=== PATIENT | female | born 1995 | race Two or more races ===

== ENCOUNTER 2016-06-14 10:59 | Emergency (ER) | payer MEDICAID ==
[2016-06-14 11:03] VITALS: RESP 16
[2016-06-14] MEDS ORDERED: NS 1,000 ML IV ONE (11:26)
--- NOTE | 2016-06-14 11:29 | EDPHY ---
H & P Stated Complaint: bleeding 12wks HPI/ROS: CHIEF COMPLAINT: Vaginal bleeding, HISTORY OF PRESENT ILLNESS: at approximately 12 weeks gestation notes bleeding that started on Saturday. It was spotting at . It has steadily increased. Still less than 1 pad per hour. Associated with some pelvic cramping but no severe pain. No abdominal pain. No flank pain. No nausea or vomiting. 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 She reports normal care to this point, with 1 ultrasound showing an intrauterine several weeks ago. Last menstrual period was March 18 2016 with an EDC of December 26, 2016. She has no other associated complaints or modifying factors. She feels that she is O negative and that she has received RhoGAM with her previous which she is uncertain. REVIEW OF SYSTEMS: Ten systems reviewed and are negative unless otherwise noted in the HPI EXAMINATION General Appearance: Alert, no distress Head: normocephalic, atraumatic Eyes: Pupils equal and round, no conjunctival pallor or injection ENT, Mouth: Mucous membranes moist . Uvula midline. No lesions or edema. Neck: Normal inspection, supple, non-tender Respiratory: Lungs are clear to auscultation . No wheezing, rhonchi or crackles. Cardiovascular: Regular rate and rhythm . No murmur. Gastrointestinal: Abdomen is soft and nontender . No tympany or rigidity. No CVA tenderness. Benign abdomen. : Female RN present. Os open at 1cm. No tenderness. No friability. Blood in the adnexa. No adnexal tenderness. Back: non-tender, no bony abnormalities Neurological: A&O, nonfocal, normal gait Skin: Warm and dry, no rash Extremities: Nontender, no pedal edema Psychiatric: Mood and affect normal DIFFERENTIAL DIAGNOSES: Including but not limited to threatened , missed , inevitable , demise, subchorionic hemorrhage, vaginal bleeding MDM: 11:20 a.m. with vaginal bleeding at 12 weeks gestation. She reports a normal care to this point. She has already had a pelvic exam with negative swabs recently at [facility]. She is also currently being treated for a urinary tract infection. The bleeding is [id number], less than 1 pad per hour. Did worsen recently. No fever or chills. No vaginal discharge. She thinks she is O negative and has already received RhoGAM in the past, but we will verify this. 12:40 p.m. notified by radiologist's that the ultrasound reveals intrauterine demise. The ultrasound shows a gestational of 9 weeks with no heart tones or activity. Clinically she is 12 weeks gestation. I have updated the patient regarding this. We will perform a pelvic exam and then consult OB for further care. I did not perform a pelvic swabs as she had this done last week. 1:07 p.m. Pelvic exam performed with female Anselmo (Wily). Os is slightly opened at 1cm. No heavy bleeding. No tenderness. I have discussed with the staff (Sherry) at [facility], and I discussed with Dr. Scott. Dr. Scott recommends 800mcg of cytotec per vagina x 2 every 4 hours. She also recommends pain medication and OTC ibuprofen. [facility] has scheduled her for follow up with Dr. Gonsalez at 10:00 a.m. on Saturday. 1:25 p.m. I have discussed this plan with the patient. She is agreeable to this. I discussed with her that she can wait to decide if she would like to take the Cytotec at a later time. She says that she will consider it. She will given prescription for Cytotec, pain medication, nausea medication. I gave her strict return to the emergency department cautions including bleeding greater than 1 pad per hour, fever, chills, worsening pelvic or abdominal pain. Additionally, she does have evidence of urinary tract infection, but she was started on antibiotics for this this week. She is instructed to continue these antibiotics and follow up with primary care regarding this as well on Saturday. She is comfortable with this plan and will be discharged home after she receives her RhoGAM injection. SUPERVISION: This patient was independently evaluated without the aide of supervising physician. Source: Patient Exam Limitations: No limitations - Personal History LMP (Females 10-55): Current Tetanus/Diphtheria Vaccine: Yes Current Tetanus Diphtheria and Acellular Pertussis (TDAP): Yes Tetanus Vaccine Date: <10 years - Medical/Surgical History Hx Asthma: No Hx Chronic Respiratory Disease: No Hx Diabetes: No Hx Cardiac Disease: No Hx Renal Disease: No Hx Cirrhosis: No Hx Alcoholism: No Hx HIV/AIDS: No Hx Splenectomy or Spleen Trauma: No Other PMH: asthma - Social History Smoking Status: Never smoked Constitutional: Initial Vital Signs Temperature (C) 97.3 F 06/14/16 11:02 Heart Rate 81 06/14/16 11:02 Respiratory Rate 16 06/14/16 11:02 Blood Pressure 114/57 L 06/14/16 11:02 O2 Sat (%) 97 06/14/16 11:02 O2 Delivery Mode Room Air Allergies/Adverse Reactions: No Known Allergies Allergy (Unverified 05/28/15 20:12) Home Medications: Medication Instructions Recorded Ciprofloxacin 500Mg Prepack#2 1 btl TAKEHOME EDNOW #0 btl 03/24/16 [Cipro 500Mg Prepack#2] Ciprofloxacin [Cipro] 500 mg PO BID #14 tab 03/24/16 Ondansetron Odt [Zofran Odt 4 mg 4 mg PO Q4 PRN #10 tab 03/24/16 (*)] Ciprofloxacin [Cipro] 500 mg PO BID #14 tab 06/14/16 Hydrocodone/APAP 5/325 [[place] 1 - 2 tab PO Q4H PRN #10 tab 06/14/16 5/325 (*)] Misoprostol [Cytotec] 800 mcg VG Q4 #16 tablet 06/14/16 Ondansetron Odt [Zofran Odt 4 mg 4 mg PO Q6 PRN #12 tab 06/14/16 (*)] Medical Decision Making - Data Points Laboratory Results: Laboratory Results 06/14/16 11:40 06/14/16 11:40 06/14/16 06/14/16 06/14/16 11:40 11:40 11:40 WBC 6.53 10^3/uL 10^3/uL (3.80-9.50) RBC 4.34 10^6/uL 10^6/uL (4.18-5.33) Hgb 11.9 g/dL L g/dL (12.6-16.3) Hct 36.2 % L % (38.0-47.0) MCV 83.4 fL fL (81.5-99.8) MCH 27.4 pg L pg (27.9-34.1) MCHC 32.9 g/dL g/dL (32.4-36.7) RDW 15.7 % H % (11.5-15.2) Plt Count 233 10^3/uL 10^3/uL (150-400) MPV 8.9 fL fL (8.7-11.7) Neut % (Auto) 59.3 % % (39.3-74.2) Lymph % (Auto) 30.9 % % (15.0-45.0) [place] % (Auto) 8.1 % % (4.5-13.0) Eos % (Auto) 1.2 % % (0.6-7.6) Baso % (Auto) 0.2 % L % (0.3-1.7) Nucleat RBC Rel Count 0.0 % % (0.0-0.2) Absolute Neuts (auto) 3.87 10^3/uL 10^3/uL (1.70-6.50) Absolute Lymphs (auto) 2.02 10^3/uL 10^3/uL (1.00-3.00) Absolute Monos (auto) 0.53 10^3/uL 10^3/uL (0.30-0.80) Absolute Eos (auto) 0.08 10^3/uL 10^3/uL (0.03-0.40) Absolute Basos (auto) 0.01 10^3/uL L 10^3/uL (0.02-0.10) Absolute Nucleated RBC 0.00 10^3/uL 10^3/uL (0-0.01) Immature Gran % 0.3 % % (0.0-1.1) Immature Gran # 0.02 10^3/uL 10^3/uL (0.00-0.10) PT 14.0 SEC SEC (12.0-15.0) INR 1.09 (0.83-1.16) APTT 30.4 SEC SEC (23.0-38.0) Sodium Potassium Chloride Carbon Dioxide Anion Gap BUN Creatinine Estimated GFR Glucose Calcium Total Bilirubin Conjugated Bilirubin Unconjugated Bilirubin AST ALT Alkaline Phosphatase Total Protein Albumin Lipase Beta HCG, Quant Urine Color YELLOW Urine Appearance CLEAR Urine pH 6.0 (5.0-7.5) Ur Specific [place] 1.012 (1.002-1.030) Urine Protein NEGATIVE (NEGATIVE) Urine Ketones NEGATIVE (NEGATIVE) Urine Blood 3+ H (NEGATIVE) Urine Nitrate POSITIVE H (NEGATIVE) Urine Bilirubin NEGATIVE (NEGATIVE) Urine Urobilinogen NEGATIVE EU EU (0.2-1.0) Ur Leukocyte Esterase 3+ H (NEGATIVE) Urine RBC 3-5 /hpf H /hpf (0-3) Urine WBC 25-50 /hpf H /hpf (0-3) Ur Epithelial Cells TRACE /lpf /lpf (NONE-1+) Urine Bacteria 2+ /hpf H /hpf (NONE SEEN) Urine Mucus TRACE /lpf /lpf (NONE-1+) Ur Culture Indicated? INDICATED H (NI) Urine Glucose NEGATIVE (NEGATIVE) Patient ABO/Rh Antibody Screen 06/14/16 06/14/16 11:40 11:40 WBC RBC Hgb Hct MCV MCH MCHC RDW Plt Count MPV Neut % (Auto) Lymph % (Auto) [place] % (Auto) Eos % (Auto) Baso % (Auto) Nucleat RBC Rel Count Absolute Neuts (auto) Absolute Lymphs (auto) Absolute Monos (auto) Absolute Eos (auto) Absolute Basos (auto) Absolute Nucleated RBC Immature Gran % Immature Gran # PT INR APTT Sodium 136 mEq/L mEq/L (134-144) Potassium 4.0 mEq/L mEq/L (3.5-5.2) Chloride 104 mEq/L mEq/L (97-110) Carbon Dioxide 22 mEq/l mEq/l (22-31) Anion Gap 10 mEq/L mEq/L (8-16) BUN 11 mg/dL mg/dL (7-23) Creatinine 0.6 mg/dL mg/dL (0.6-1.0) Estimated GFR > 60 Glucose 85 mg/dL mg/dL (70-100) Calcium 9.5 mg/dL mg/dL (8.5-10.4) Total Bilirubin 0.6 mg/dL mg/dL (0.1-1.4) Conjugated Bilirubin 0.4 mg/dL mg/dL (0.0-0.5) Unconjugated Bilirubin 0.2 mg/dL mg/dL (0.0-1.1) AST 23 IU/L IU/L (14-46) ALT 31 IU/L IU/L (9-52) Alkaline Phosphatase 62 IU/L IU/L (38-126) Total Protein 7.5 g/dL g/dL (6.3-8.2) Albumin 4.1 g/dL g/dL (3.5-5.0) Lipase 126.0 IU/L IU/L (23-300) Beta HCG, Quant 8009.40 mIU/mL H mIU/mL (0-4.83) Urine Color Urine Appearance Urine pH Ur Specific [place] Urine Protein Urine Ketones Urine Blood Urine Nitrate Urine Bilirubin Urine Urobilinogen Ur Leukocyte Esterase Urine RBC Urine WBC Ur Epithelial Cells Urine Bacteria Urine Mucus Ur Culture Indicated? Urine Glucose Patient ABO/Rh O NEGATIVE Antibody Screen Pending Medications Given: Discontinued Medications Sodium Chloride (Ns) 1,000 mls @ 0 mls/hr IV ONCE ONE PRN Reason: Wide Open Stop: 06/14/16 11:27 Last Admin: 06/14/16 11:38 Dose: 1,000 mls Departure - Departure Disposition: Home, Routine, Self-Care Clinical Impression: demise before 20 weeks with retention of fetus UTI (urinary tract infection) Qualifiers: Urinary tract infection type: site unspecified Hematuria presence: with hematuria Qualified Code(s): N39.0 - Urinary tract infection, site not specified Condition: Good Instructions: Miscarriage (ED) Additional Instructions: Follow-up with Dr. Gonsalez on Saturday at 10:00 a.m. at [facility]. Return to the ER for worsening pain, any fever, vomiting, bleeding greater than or equal to 1 pad per hour Referrals: [facility] [Other] - As per Instructions (Saturday at 10:00 a.m.) Stand Alone Forms: Work Excuse Prescriptions: Ciprofloxacin [Cipro] 500 mg PO BID #14 tab Hydrocodone/APAP 5/325 [Young 5/325 (*)] 1 - 2 tab PO Q4H PRN #10 tab PRN Reason: Pain, Moderate Misoprostol [Cytotec] 800 mcg VG Q4 #16 tablet Ondansetron Odt [Zofran Odt 4 mg (*)] 4 mg PO Q6 PRN #12 tab PRN Reason: Nausea/Vomiting, Use 1st
[2016-06-14 11:55] LABS: % IMMATURE GRANULYOCYTES 0.3 % (0.0-1.1); ABSOLUTE IMMATURE GRANULOCYTES 0.02 10^3/uL (0.00-0.10); ADD DIFF? NO; ADD MORPH? NO; ADD SCAN? NO; ATYPICAL LYMPHOCYTE FLAG 20 (0-99); FRAGMENT RBC FLAG 0 (0-99); HEMATOCRIT 36.2 % (38.0-47.0); HEMOGLOBIN 11.9 g/dL (12.6-16.3); LEFT SHIFT FLG 0 (0-99); LIPEMIA HEMOLYSIS FLAG 80 (0-99); MEAN CELL HEMOGLOBIN 27.4 pg (27.9-34.1); MEAN CELL HEMOGLOBIN CONCENTR. 32.9 g/dL (32.4-36.7); MEAN CELL VOLUME 83.4 fL (81.5-99.8); MEAN PLATELET VOLUME 8.9 fL (8.7-11.7); PLATELET CLUMPS FLAG 0 (0-99); PLATELET COUNT 233 10^3/uL (150-400); RED BLOOD CELL COUNT 4.34 10^6/uL (4.18-5.33); RED CELL DISTRIBUTION WIDTH 15.7 % (11.5-15.2)
[2016-06-14 12:06] LABS: INR 1.09 (0.83-1.16)
[2016-06-14 12:07] LABS: APTT 30.4 SEC (23.0-38.0)
[2016-06-14 12:12] LABS: ALANINE AMINOTRANSFERASE 31 IU/L (9-52); ALBUMIN 4.1 g/dL (3.5-5.0); ALKALINE PHOSPHATASE 62 IU/L (38-126); ANION GAP 10 mEq/L (8-16); ASPARTATE AMINOTRANSFERASE 23 IU/L (14-46); BILIRUBIN,TOTAL 0.6 mg/dL (0.1-1.4); BILIRUBIN-CONJUGATED 0.4 mg/dL (0.0-0.5); BILIRUBIN-UNCONJUGATED 0.2 mg/dL (0.0-1.1); CALCIUM 9.5 mg/dL (8.5-10.4); CARBON DIOXIDE 22 mEq/l (22-31); CHLORIDE 104 mEq/L (97-110); CREATININE 0.6 mg/dL (0.6-1.0); GLOMERULAR FILTRATION RATE > 60; GLUCOSE 85 mg/dL (70-100); SODIUM 136 mEq/L (134-144); TOTAL PROTEIN 7.5 g/dL (6.3-8.2)
[2016-06-14 12:25] LABS: COLOR YELLOW; LEUKOCYTE ESTERASE,URINE 3+ (NEGATIVE); NITRITE,URINE POSITIVE (NEGATIVE)
[2016-06-14 12:30] LABS: BACTERIA 2+ /hpf (NONE SEEN); MUCUS TRACE /lpf (NONE-1+); WBC,URINE 25-50 /hpf (0-3)
[2016-06-14 14:41] VITALS: BP 99/69; PULSE 67; TEMP 98.2; O2SAT 99
== END 2016-06-14 15:01 | disposition home or self-care (01) ==
DX: O02.1 Missed abortion (principal); O23.41 Unspecified infection of urinary tract in pregnancy, first trimester; B95.1 Streptococcus, group B, as the cause of diseases classified elsewhere; J45.909 Unspecified asthma, uncomplicated; Z3A.09 9 weeks gestation of pregnancy

== ENCOUNTER 2016-06-16 15:37 | Observation (INO) | payer MEDICAID ==
[2016-06-16 16:55] LABS: % IMMATURE GRANULYOCYTES 0.3 % (0.0-1.1); ABSOLUTE IMMATURE GRANULOCYTES 0.03 10^3/uL (0.00-0.10); ADD DIFF? NO; ADD MORPH? NO; ADD SCAN? NO; ATYPICAL LYMPHOCYTE FLAG 30 (0-99); FRAGMENT RBC FLAG 0 (0-99); HEMATOCRIT 32.2 % (38.0-47.0); HEMOGLOBIN 10.7 g/dL (12.6-16.3); LEFT SHIFT FLG 0 (0-99); LIPEMIA HEMOLYSIS FLAG 80 (0-99); MEAN CELL HEMOGLOBIN 27.6 pg (27.9-34.1); MEAN CELL HEMOGLOBIN CONCENTR. 33.2 g/dL (32.4-36.7); MEAN CELL VOLUME 83.2 fL (81.5-99.8); MEAN PLATELET VOLUME 8.8 fL (8.7-11.7); PLATELET CLUMPS FLAG 0 (0-99); PLATELET COUNT 233 10^3/uL (150-400); RED BLOOD CELL COUNT 3.87 10^6/uL (4.18-5.33); RED CELL DISTRIBUTION WIDTH 15.5 % (11.5-15.2)
[2016-06-16 17:08] LABS: ANION GAP 11 mEq/L (8-16); CALCIUM 8.9 mg/dL (8.5-10.4); CARBON DIOXIDE 21 mEq/l (22-31); CHLORIDE 104 mEq/L (97-110); CREATININE 0.7 mg/dL (0.6-1.0); GLOMERULAR FILTRATION RATE > 60; GLUCOSE 101 mg/dL (70-100); POTASSIUM 3.5 mEq/L (3.5-5.2); SODIUM 136 mEq/L (134-144)
[2016-06-16 17:17] VITALS: RESP 16; TEMP 98.1
[2016-06-16] MEDS ORDERED: NS 1,000 ML IV ONE ×2 (17:43)
--- NOTE | 2016-06-16 17:54 | EDPHY ---
H & P Smoking Status: Never smoked Time Seen by Provider: 06/16/16 16:15 HPI/ROS: CHIEF COMPLAINT: Vaginal bleeding HISTORY OF PRESENT ILLNESS: 20-year-old female presents to the emergency department with heavy vaginal bleeding. The patient was seen in the emergency department 2 days ago, 06/14/2016 with demise. She was going to start Cytotec intravaginally, however she began bleeding heavily at 2:00 p.m. today. The patient states that she soaked a pad within about 20 minutes over last few hours. She has some mild abdominal cramping. She was feeling lightheaded and dizzy although she does not feel that now. She denies chest pain or difficulty breathing. Denies headache. Her last known menstrual period was 03/18/2016. She is 2 para 1 AB 0. REVIEW OF SYSTEMS: Constitutional: No fever, no chills. Eyes: No double or blurry vision. ENT: No sore throat. Respiratory: No cough, no shortness of breath. Cardiac: No chest pain. Gastrointestinal: Abdominal cramping as above. No vomiting or diarrhea. Genitourinary: No dysuria. Musculoskeletal: No neck or back pain. Skin: No rashes. Neurological: No headache. ([place] Pepe) Past Medical/Surgical History: 2 para 1 AB 0 ([place] Pepe) Social History: Single, she has 2-year-old daughter ([place] Pepe) Physical Exam: General Appearance: Alert, no distress. Initial blood pressure 130/77, heart rate 67, afebrile and nontoxic-appearing. Eyes: Pupils equal and round. Extraocular motions are all intact. ENT: Mouth: Mucous membranes moist. Respiratory: No wheezing, rhonchi, or rales, lungs are clear to auscultation. Cardiovascular: Regular rate and rhythm. Gastrointestinal: Abdomen is soft and nontender, no masses, no rebound or guarding, bowel sounds normal. Genitourinary: Patient has heavy vaginal bleeding and is sitting in a pool of clotted blood. Products of conception are noted and obtained and sent to the lab. On speculum examination the cervical os is well visualized and is dilated to 2 cm with some retained clot in the cervix. After the clot was removed from the vaginal canal, there was no more active vaginal bleeding noted. Neurological: Alert and oriented x 3, cranial nerves II through XII grossly intact Skin: Warm and dry, no rashes. Musculoskeletal: Nontender to palpate along the cervical, thoracic or lumbar spine. Neck is supple. Extremities: Full range of motion and no peripheral edema. Psychiatric: Patient is oriented X 3, there is no agitation. ([place] Pepe) Constitutional: Initial Vital Signs Temperature (C) 36.5 C 06/16/16 15:45 Heart Rate 67 06/16/16 15:45 Respiratory Rate 20 06/16/16 15:45 Blood Pressure 130/77 H 06/16/16 15:45 O2 Sat (%) 100 06/16/16 15:45 O2 Delivery Mode Room Air Allergies/Adverse Reactions: No Known Allergies Allergy (Verified 06/16/16 15:52) Home Medications: Medication Instructions Recorded Ciprofloxacin [Cipro] 500 mg PO BID #14 tab 06/14/16 Hydrocodone/APAP 5/325 [[place] 1 - 2 tab PO Q4H PRN #10 tab 06/14/16 5/325 (*)] Misoprostol [Cytotec] 800 mcg VG Q4 #16 tablet 06/14/16 Ondansetron Odt [Zofran Odt 4 mg 4 mg PO Q6 PRN #12 tab 06/14/16 (*)] Medical Decision Making - Diagnostics Imaging: Pelvic ultrasound reveals positive retained products of conception. This was reported by Dr. Kush Sen. (My[place] Suki) ED Course/Re-evaluation: 20-year-old female presents to the emergency department with heavy vaginal bleeding. She was diagnosed with demise 2 days ago. She developed spontaneous miscarriage at 2:00 p.m. today and has been heavy vaginal bleeding since that time. At her previous ED visit 2 days ago, the patient received RhoGAM since she is O negative. Quantitative HCG was 8802 days ago. Quantitative HCG today was 3600. Her hematocrit when the patient initially ride was 32%. This was repeated after my evaluation and she had a repeat hematocrit of 27%. The patient was monitored throughout her stay in the emergency department. Patient became hypotensive and dizzy at 5:30 p.m.. She had a blood pressure of 40/26. The additional IV was started and patient was given IV normal saline. She is currently on her 3rd L of IV normal saline. 175: Repeat blood pressure is 82/46. She is feeling better. I spoke with Dr. Kallie Palacios who recommended obtaining pelvic ultrasound to evaluate for retained products of conception. This is currently being done at 1754. The case was discussed with Dr. Chester Gerber, secondary supervising physician, who did not directly evaluate the patient but agrees with treatment and plan. Repeat hemoglobin and hematocrit is pending. Repeat hemoglobin and hematocrit was 6.2, and 19.3%. Patient was re-evaluated with Dr. Chester Gerber at 6:35 p.m. and the patient states that she is vaginal bleeding again. I spoke with Dr. Kallie Palacios immediately and the patient will be taken to the OR for D and C. Dr. Kallie Palacios recommended that the patient received 2 units of packed red blood cells. This has been ordered. The patient is O negative. Again she receive RhoGAM at her previous visit 2 days ago so this was not repeated today. Current blood pressure 90/45 ([place] Pepe) Differential Diagnosis: Including but not limited to spontaneous miscarriage, ectopic , intrauterine , retained products of conception, anemia (Paris Pepe ) Critical Care Time: I spent a total of 20 minutes of critical care time in obtaining history, performing a physical exam, bedside monitoring of interventions, collecting and interpreting tests and discussion with consultants but not including time spent performing procedures [and exclusive of the PA's time]. (Chester Gerber) Other Provider: I did evaluate this patient. She has significant bleeding and is pale and hypotensive. Her hematocrit has dropped. We have transferred her urgently to the labor and delivery floor for D and C by Dr. Kallie Palacios. We have ordered blood transfusion. (Chester Gerber) - Data Points Laboratory Results: Laboratory Results 06/16/16 17:50 06/16/16 16:40 06/16/16 06/16/16 06/16/16 17:50 17:01 16:40 WBC RBC Hgb 6.2 g/dL L g/dL (12.6-16.3) POC Hgb 9.2 gm/dL L gm/dL (12.3-15.9) Hct 19.3 % L D % (38.0-47.0) POC Hct 27 % L % (35.5-47.5) MCV MCH MCHC RDW Plt Count MPV Neut % (Auto) Lymph % (Auto) [place] % (Auto) Eos % (Auto) Baso % (Auto) Nucleat RBC Rel Count Absolute Neuts (auto) Absolute Lymphs (auto) Absolute Monos (auto) Absolute Eos (auto) Absolute Basos (auto) Absolute Nucleated RBC Immature Gran % Immature Gran # POC Sodium 139 mEq/L mEq/L (134-144) Sodium POC Potassium 3.5 mEq/L mEq/L (3.3-5.0) Potassium POC Chloride 106 mEq/L mEq/L (96-108) Chloride Carbon Dioxide Anion Gap POC BUN 9 mg/dL mg/dL (7-23) BUN Creatinine POC Creatinine 0.6 mg/dL mg/dL (0.6-1.2) Estimated GFR Glucose POC Glucose 114 mg/dL H mg/dL (70-100) Calcium Beta HCG, Qual POSITIVE Beta HCG, Quant Patient ABO/Rh Antibody Screen Crossmatch IS Only 06/16/16 06/16/16 06/16/16 16:40 16:40 16:25 WBC 9.49 10^3/uL 10^3/uL (3.80-9.50) RBC 3.87 10^6/uL L 10^6/uL (4.18-5.33) Hgb 10.7 g/dL L g/dL (12.6-16.3) POC Hgb Hct 32.2 % L % (38.0-47.0) POC Hct MCV 83.2 fL fL (81.5-99.8) MCH 27.6 pg L pg (27.9-34.1) MCHC 33.2 g/dL g/dL (32.4-36.7) RDW 15.5 % H % (11.5-15.2) Plt Count 233 10^3/uL 10^3/uL (150-400) MPV 8.8 fL fL (8.7-11.7) Neut % (Auto) 73.6 % % (39.3-74.2) Lymph % (Auto) 19.8 % % (15.0-45.0) [place] % (Auto) 5.7 % % (4.5-13.0) Eos % (Auto) 0.4 % L % (0.6-7.6) Baso % (Auto) 0.2 % L % (0.3-1.7) Nucleat RBC Rel Count 0.0 % % (0.0-0.2) Absolute Neuts (auto) 6.98 10^3/uL H 10^3/uL (1.70-6.50) Absolute Lymphs (auto) 1.88 10^3/uL 10^3/uL (1.00-3.00) Absolute Monos (auto) 0.54 10^3/uL 10^3/uL (0.30-0.80) Absolute Eos (auto) 0.04 10^3/uL 10^3/uL (0.03-0.40) Absolute Basos (auto) 0.02 10^3/uL 10^3/uL (0.02-0.10) Absolute Nucleated RBC 0.00 10^3/uL 10^3/uL (0-0.01) Immature Gran % 0.3 % % (0.0-1.1) Immature Gran # 0.03 10^3/uL 10^3/uL (0.00-0.10) POC Sodium Sodium 136 mEq/L mEq/L (134-144) POC Potassium Potassium 3.5 mEq/L mEq/L (3.5-5.2) POC Chloride Chloride 104 mEq/L mEq/L (97-110) Carbon Dioxide 21 mEq/l L mEq/l (22-31) Anion Gap 11 mEq/L mEq/L (8-16) POC BUN BUN 11 mg/dL mg/dL (7-23) Creatinine 0.7 mg/dL mg/dL (0.6-1.0) POC Creatinine Estimated GFR > 60 Glucose 101 mg/dL H mg/dL (70-100) POC Glucose Calcium 8.9 mg/dL mg/dL (8.5-10.4) Beta HCG, Qual Beta HCG, Quant 3604.50 mIU/mL H mIU/mL (0-4.83) Patient ABO/Rh Pending Antibody Screen Pending Crossmatch IS Only See Detail Medications Given: Discontinued Medications Sodium Chloride (Ns) 1,000 mls @ 0 mls/hr IV ONCE ONE PRN Reason: Wide Open Stop: 06/16/16 17:44 Last Admin: 06/16/16 17:44 Dose: 1,000 mls Sodium Chloride (Ns) 1,000 mls @ 0 mls/hr IV ONCE ONE PRN Reason: Wide Open Stop: 06/16/16 17:44 Last Admin: 06/16/16 17:44 Dose: 1,000 mls Point of Care Test Results: 06/16/16 17:01 POC Sodium 139 POC Potassium 3.5 POC Chloride 106 POC BUN 9 POC Creatinine 0.6 POC Glucose 114 H Departure - Departure Disposition: [facility] Inpatient Acute Clinical Impression: Vaginal bleeding, Spontaneous miscarriage Anemia Qualifiers: Anemia type: other cause Other causes of anemia: other cause, not classified Qualified Code(s): D64.89 - Other specified anemias Condition: Fair
[2016-06-16 18:04] LABS: HEMATOCRIT 19.3 % (38.0-47.0)
[2016-06-16 18:05] LABS: HEMOGLOBIN 6.2 g/dL (12.6-16.3)
[2016-06-16 18:44] VITALS: BP 92/52; PULSE 82; O2SAT 98
[2016-06-16] MEDS ORDERED: MIDAZOLAM 2 MG/2 ML VIAL ONE (19:08)
[2016-06-16] MEDS ORDERED: PROPOFOL 200 MG/20 ML VIAL ONE (19:08)
[2016-06-16] MEDS ORDERED: fentaNYL 100 MCG/2 ML INJ ONE (19:08)
[2016-06-16] MEDS ORDERED: PHENYLEPHRINE HCL 100 MCG/ML SYR ONE (19:09)
[2016-06-16] MEDS ORDERED: ONDANSETRON 4 MG/2 ML VIAL ONE (19:09)
[2016-06-16] MEDS ORDERED: ROCURONIUM 50 MG/5 ML VIAL ONE (19:11)
[2016-06-16] MEDS ORDERED: LIDOCAINE 2% 5 ML SDV ONE (19:12)
[2016-06-16] MEDS ORDERED: SUCCINYLCHOLINE CHLORIDE*ANESTHESIA ONLY*200 MG/10 ML SYR IVP ONE (19:14)
--- NOTE | 2016-06-16 19:25 | GHP ---
[f rep st] PREOP HISTORY AND PHYSICAL DATE OF ADMISSION: 06/16/2016 PREOPERATIVE DIAGNOSIS: Incomplete and heavy vaginal bleeding. Surgery to be performed, s uction dilation curettage. HISTORY OF PRESENT ILLNESS: The patient is a 20-year-old, 2, para 1-0-0-1, who was first se en in the Emergency Department on 06/14/2016 and diagnosed with a missed . Ultrasound at at time revealed a nonviable IUP. She was given options of expectant management versus medical donald gement. She was going to do medical management with Cytotec. However, began spontaneously bleeding today at approximately 2:00 p.m. She represented to the emergency room with heavy vaginal bleeding and was hypotensive. Her initial hematocrit in the ER was 32%. At one point in her visit her bloo d pressure dropped to 40/26. She has had 2 IVs running. She has had a total of 3 L normal saline. Repeat blood pressure was 82/46, and she was feeling better. Initially Emergency Department PA did a vaginal examination, and pulled tissue and blood out of the vault, and felt like her bleeding was under control. She then had a pelvic ultrasound to rule out retained products of conception. The pelvic ultrasound revealed a thickened endometrial stripe of 1.6 cm that was hypervascular consisten t with retained products of conception. With observation, she has continued to have heavy episodes of bleeding, and her repeat hematocrit dropped to 19. She is started on 2 units of blood, and she i s presenting to Labor and Delivery for a suction dilation curettage with a diagnosis of incomplete a bortion. PAST OBSTETRICAL HISTORY: She had a spontaneous vaginal delivery of a 2-year-old daughter, no compl ication. This is her 2nd . No significant past medical history or surgical history, per the ER doctor's evaluation. ALLERGIES: No known drug allergies. MEDICATIONS: Ciprofloxacin 500 mg b.i.d., she was given 14 days. [place]. Zofran. ASSESSMENT/PLAN: A 20-year-old, 2, para 1-0-0-1 with an incomplete , and hypotensio n, and severe anemia. She will have a suction dilation curettage, and bedside consent will be perfo rmed. Consent includes the risks of bleeding, infection, damage to the uterus including possible ri sk of perforation, damage to other organs if perforation were to occur, risk of needing repeat proce dure or additional procedures, and compromise of future fertility. /[id number]/MODL
[2016-06-16] MEDS ORDERED: MIDAZOLAM 2 MG/2 ML VIAL IVP ONE (19:30)
[2016-06-16] MEDS ORDERED: SUGAMMADEX SODIUM 200 MG/2 ML VIAL IVP ONE (19:45)
--- NOTE | 2016-06-16 20:51 | GOP ---
[f rep st] OPERATIVE REPORT DATE OF OPERATION: 06/16/2016 SURGEON: Kallie Palacios MD ANESTHESIA: General anesthesia. ANESTHESIOLOGIST: Romeo Estrada DO PREOPERATIVE DIAGNOSIS: Incomplete with hemorrhage. POSTOPERATIVE DIAGNOSIS: Incomplete with hemorrhage. PROCEDURE PERFORMED: Suction dilation and curettage. FINDINGS: DESCRIPTION OF PROCEDURE: The patient was taken to the operating room, where she was placed under g eneral anesthesia without difficulty. She was prepped and draped in the dorsal lithotomy position. After a WHO time-out was performed, an open-sided speculum was placed in the vagina. There were sm all amounts of clot in the vault and the cervical os that were removed directly. The cervix was gra sped with an atraumatic tenaculum. The uterus sounded to 9 cm. A #9 curved suction curette was the n gently advanced from the cervix to the fundus and suction was applied. There was a minimal amount of tissue removed with the suction device. A sharp curettage was then performed in a clockwise fas hion until a gritty texture was palpated throughout the entire uterine contents. Final passes of th e suction revealed minimal tissue and good hemostasis. The tenaculum was removed. There was no ble eding at the site of the cervix. The speculum was removed. Due to the patient's profound anemia, p atient was given a dose of IM Methergine to increase uterine tone. A bedside vaginal ultrasound was performed and the uterus was normal, a thin endometrium, no retained products of conception were se en. The patient went to the recovery room in good condition. Sponge, laparotomy, needle, instrumen t counts were correct x2. Estimated blood loss for the procedure was less than 10 cc. Urine output was 300 cc. IV fluid was 1000 cc. Pathologic specimen will be products of conception. INDICATION FOR PROCEDURE: The patient is a 20-year-old, 2, para 1-0-0-1, who was diagnosed with a missed on 06/14/2016 in the emergency department. She was given options and she has to have medical management with Cytotec and she was given RhoGAM at that time. She began having sp ontaneous bleeding at 2:00 p.m. this afternoon. It was heavy, bright red, passing large clots. She presented to the emergency room hypotensive. There was clot and tissue at the os which was removed by the ER PA and initially felt like her bleeding was stable. Her hematocrit dropped from 32 down to 19. She had an ultrasound that revealed retained products of conception. Decision was made to p terrell with suction dilation and curettage. The patient was consented for the procedure. She under stood the risks and benefits. The risks including bleeding, infection, damage to the uterus, includ ing possible risk of perforation, damage to other organs if perforation were to occur, risk of incom plete removal of all of the tissue, with need for spontaneous expulsion or repeat procedure, and com promise of future fertility. She understood these risks and benefits and agreed to proceed. /[id number]/MODL
[2016-06-16] MEDS ORDERED: DOXYCYCLINE INJ 100 MG in NS 250 ML IV SCH (21:00)
[2016-06-16 21:16] LABS: % IMMATURE GRANULYOCYTES 0.3 % (0.0-1.1); ABSOLUTE IMMATURE GRANULOCYTES 0.03 10^3/uL (0.00-0.10); ADD DIFF? NO; ADD MORPH? NO; ADD SCAN? NO; ATYPICAL LYMPHOCYTE FLAG 20 (0-99); FRAGMENT RBC FLAG 0 (0-99); HEMATOCRIT 23.8 % (38.0-47.0); HEMOGLOBIN 7.6 g/dL (12.6-16.3); LEFT SHIFT FLG 0 (0-99); LIPEMIA HEMOLYSIS FLAG 80 (0-99); MEAN CELL HEMOGLOBIN 27.2 pg (27.9-34.1); MEAN CELL HEMOGLOBIN CONCENTR. 31.9 g/dL (32.4-36.7); MEAN CELL VOLUME 85.3 fL (81.5-99.8); MEAN PLATELET VOLUME 8.8 fL (8.7-11.7); PLATELET CLUMPS FLAG 10 (0-99); PLATELET COUNT 180 10^3/uL (150-400); RED BLOOD CELL COUNT 2.79 10^6/uL (4.18-5.33); RED CELL DISTRIBUTION WIDTH 15.5 % (11.5-15.2)
== END 2016-06-16 22:02 | disposition home or self-care (01) ==
LOC: FLD 18:56
PROVIDERS: ADMIT Obstetrics & Gynecology; ATTEND Obstetrics & Gynecology
PROC: 10D17ZZ Extraction of Products of Conception, Retained, Via Natural or Artificial Opening (ICD-10-PCS; principal; 2016-06-16)
PROC: 30233N1 Transfusion of Nonautologous Red Blood Cells into Peripheral Vein, Percutaneous Approach (ICD-10-PCS; principal; 2016-06-16)
DX: O03.1 Delayed or excessive hemorrhage following incomplete spontaneous abortion (principal); I95.9 Hypotension, unspecified; D64.9 Anemia, unspecified
CPT/HCPCS: 36430; 59812; 76856; G0378; 82947-QW; 96374; J0330; J2250; J2370; J2405; J2704; J3010

== ENCOUNTER 2017-02-25 10:00 | Emergency (ER) | payer MEDICAID ==
[2017-02-25 10:10] VITALS: O2SAT 97
[2017-02-25 11:20] VITALS: BP 101/62; PULSE 76; RESP 16; TEMP 98.2
--- NOTE | 2017-02-25 11:20 | EDPHY ---
General Time Seen by Provider: 02/25/17 10:35 Narrative: CHIEF COMPLAINT: UTI HISTORY OF PRESENT ILLNESS: Patient complains of having UTI symptoms. This started late last night. She feels as though she has been going more frequently and had some burning. No foul odor. Symptoms are consistent with previous urinary tract infections. No flank pain. No nausea or vomiting. No fever. No pelvic pain. No vaginal bleeding or discharge. No other associated complaints or modifying factors. REVIEW OF SYSTEMS: Ten systems reviewed and are negative unless otherwise noted in the HPI [facility]CP: [facility] SPECIALISTS: None PAST MEDICAL HISTORY: None PAST SURGICAL HISTORY: None SOCIAL HISTORY: Nonsmoker. FAMILY HISTORY: Noncontributory EXAMINATION General Appearance: Alert, no distress Head: normocephalic, atraumatic Eyes: Pupils equal and round, no conjunctival pallor or injection ENT, Mouth: Mucous membranes moist Neck: Normal inspection, supple, non-tender Respiratory: Lungs are clear to auscultation no wheezing, rhonchi or crackles Cardiovascular: Regular rate and rhythm. Gastrointestinal: Abdomen is soft and nontender. No CVA tenderness. No tympany. No rigidity. Nonacute abdomen Back: non-tender, no bony abnormalities Neurological: A&O, nonfocal, normal gait Skin: Warm and dry, no rash Extremities: Nontender, no pedal edema Psychiatric: Mood and affect normal DIFFERENTIAL DIAGNOSES: Including but not limited to UTI, renal colic, stone, cystitis, urethritis, PID MDM: 11:15 a.m. Dysuria with complaints of urinary tract infection consistent with previous. No flank pain. No abdominal pain. No nausea or vomiting. Vital signs stable. Urinalysis does not reveal definitive UTI, but the patient says these are the same symptoms as previous. Thus I will treat her presumptively. Urine culture has been ordered. Do not feel she warrants any further workup at this time. She is comfortable with being discharged home with this plan. She will follow up with [facility]. She will return here for any worsening symptoms, flank pain, fever, nausea, vomiting, abdominal pain. She is discharged stable condition - History Smoking Status: Never smoked - Objective Vital Signs: Initial Vital Signs Temperature (C) 98.1 F 02/25/17 10:08 Heart Rate 84 02/25/17 10:08 Respiratory Rate 18 02/25/17 10:08 Blood Pressure 117/67 02/25/17 10:08 O2 Sat (%) 97 02/25/17 10:08 O2 Delivery Mode Room Air Allergies/Adverse Reactions: No Known Allergies Allergy (Verified 06/16/16 15:52) Home Medications: Medication Instructions Recorded Nitrofurantoin Monohyd/M-Cryst 100 mg PO BID #14 capsule 02/25/17 [Macrobid 100 mg Capsule] Laboratory Results: 02/25/17 10:38 Urine Color YELLOW Urine Appearance TURBID Urine pH 6.0 (5.0-7.5) Ur Specific [place] 1.010 (1.002-1.030) Urine Protein 2+ H (NEGATIVE) Urine Ketones NEGATIVE (NEGATIVE) Urine Blood 3+ H (NEGATIVE) Urine Nitrate NEGATIVE (NEGATIVE) Urine Bilirubin NEGATIVE (NEGATIVE) Urine Urobilinogen NEGATIVE EU EU (0.2-1.0) Ur Leukocyte Esterase 3+ H (NEGATIVE) Urine RBC 50-182 /hpf H /hpf (0-3) Urine WBC 50-182 /hpf H /hpf (0-3) Ur Epithelial Cells TRACE /lpf /lpf (NONE-1+) Urine Glucose NEGATIVE (NEGATIVE) Departure - Departure Disposition: Home, Routine, Self-Care Clinical Impression: Dysuria Condition: Good Instructions: Urinary Tract Infection in Women (ED) Additional Instructions: 1. Medication as prescribed to completion 2. Follow up with [facility] 3. ED precautions as discussed Referrals: [facility] [Other] - As per Instructions Prescriptions: Nitrofurantoin Monohyd/M-Cryst [Macrobid 100 mg Capsule] 100 mg PO BID #14 capsule
== END 2017-02-25 11:25 | disposition home or self-care (01) ==
DX: R30.0 Dysuria (principal)